=== PATIENT | female | born 1955 | race Caucasian/White ===

== ENCOUNTER 2025-03-16 06:19 | Day surgery (SDC) | payer MEDICARE, OTHER ==
[~2025-03-16] VITALS: Ht 162.6 cm; Wt 87.1 kg
[2025-03-16] VITALS (17 sets, daily range): BP systolic 95–156; BP diastolic 58–95
[~2025-03-16 06:19] MED LIST: ATOR80 PO; GABA100 PO; Lactated Ringer's 1,000 ML IV SCH; magnesium; vitamin b12
--- NOTE | 2025-03-16 06:37 | NUR ---
Ambulatory in Day SurgeryPre-Op teaching done. Pt verbalizes understanding. History, Chart, Medications and Allergies reviewed before start of procedure.Patient confirms NPO status and agrees with scheduled surgery. Patient States Post-Procedure ride home has been arranged.
[2025-03-16] MEDS ORDERED: Vitamin D1000 UNI1 (06:39)
[2025-03-16] MEDS ORDERED: ASPI81CH (06:40)
[2025-03-16] MEDS ORDERED: [UNRECOGNIZED DRUG - OTHER] (06:41)
[2025-03-16] MEDS ORDERED: ePHEDrine Sulfate 50 MG/ML 1ML Injection ONE (06:54)
[2025-03-16] MEDS ORDERED: propofoL 20 ML IV ONE (06:54)
[2025-03-16] MEDS ORDERED: Midazolam HCl 1MG / ML 2ML Vial ONE ×2 (07:22→07:48)
--- NOTE | 2025-03-16 07:29 | NUR ---
03/16/25 0729 Estela Wood CONFIRMED AND REVIEWED H&P, MEDCICATIONS, ALLERGIES, MEDICAL HISTORY, RESPIRATORY HISTORY, VITAL SIGNS, 3-LEAD EKG, CONSENTS, AND PHYSICIAN ORDERS. PATIENT CONFIRMS NPO STATUS AND AGREES WITH SCHEDULED PROCEDURE. MONITOR INTACT WITH CONTINUOUS PULSE OXIMETRY, CAPNOGRAPHY, 3-LEAD EKG, INTERMITTENT BP. SUPPLEMENTAL O2 TO BE TITRATED THROUGHOUT PROCEDURE TO MAINTAIN O2 SATURATION ABOVE 90%. PATIENT DETERMINED TO BE ASA APPROPRIATE FOR PROPOFOL SEDATION PRIOR TO START OF PROCEDURE BY DR. BURK.
[2025-03-16] MEDS ORDERED: Atropine Sulfate 0.1 MG/ML 10ML SYR ONE (07:46)
[2025-03-16] MEDS ORDERED: FentaNYL Citrate 50 MCG/ML 2 ML Injection ONE (07:46)
--- NOTE | 2025-03-16 08:16 | NUR ---
Discharge instructions reviewed with patient. Patient verbalizes understanding. Copy given to patient to take home. Patient States Post-Procedure ride home has been arranged WT FRIEND, BRIANNE. PLAN TO discharg via wheelchair to private car for ride home.
== END 2025-03-16 08:36 | disposition home or self-care (01) ==
LOC: ORSCMMR 06:19 → ORD 07:30 → ORSCMMR 08:36
PROVIDERS: Internal Medicine Gastroenterology
PROC: 0DBN8ZX Excision of Sigmoid Colon, Via Natural or Artificial Opening Endoscopic, Diagnostic (ICD-10-PCS; principal; 2025-03-16 07:30)
PROC: 0DBP8ZX Excision of Rectum, Via Natural or Artificial Opening Endoscopic, Diagnostic (ICD-10-PCS; principal; 2025-03-16 07:30)
DX: Z12.11 Encounter for screening for malignant neoplasm of colon (principal); R19.5 Other fecal abnormalities; K63.5 Polyp of colon; K62.1 Rectal polyp; K57.30 Diverticulosis of large intestine without perforation or abscess without bleeding; E78.00 Pure hypercholesterolemia, unspecified; Z79.899 Other long term (current) drug therapy
CPT/HCPCS: 88305; J0461; J2250; J2704; J3010; J7120